=== PATIENT | female | born 1970 | race Caucasian/White ===

== ENCOUNTER 2018-07-04 21:44 | Outpatient (REF) | payer OTHER, SELFPAY ==
[2018-07-04 22:25] LABS: TSH (W/Ref FT4) 3.21 uIU/mL (0.358-3.74)
== END 2018-07-04 22:04 ==
LOC: NCHCN 21:44
PROVIDERS: PCP Nurse Practitioner Family; Visit Provider Nurse Practitioner
DX: E03.9 Hypothyroidism, unspecified (principal); N95.1 Menopausal and female climacteric states
CPT/HCPCS: 84443

== ENCOUNTER 2019-06-12 08:05 | Outpatient (REF) | payer OTHER, SELFPAY ==
[2019-06-12 13:34] LABS: TSH (W/Ref FT4) 3.59 uIU/mL (0.36-3.74)
== END 2019-06-12 08:25 ==
LOC: NCHCN 08:05
PROVIDERS: PCP Nurse Practitioner Family; Visit Provider Nurse Practitioner Family
DX: E03.9 Hypothyroidism, unspecified (principal)
CPT/HCPCS: 84443

== ENCOUNTER 2020-04-24 03:30 | Outpatient (CLI) | payer OTHER, SELFPAY ==
[2020-04-24 13:11] LABS: TSH (W/Ref FT4) 2.59 uIU/mL (0.36-3.74)
== END 2020-04-24 03:50 ==
PROVIDERS: PCP Nurse Practitioner Family; Visit Provider Nurse Practitioner Family
DX: E03.9 Hypothyroidism, unspecified (principal)
CPT/HCPCS: 36415; 84443

== ENCOUNTER 2020-12-21 16:49 | Outpatient (REF) | payer BC, SELFPAY ==
[2020-12-23 11:30] LABS: Hepatitis C Ab w Rflx HCV PCR Negative (Negative)
[2020-12-23 11:44] LABS: HIV-1/2 Ag & Ab Screen Negative (Negative)
== END 2020-12-21 16:50 | disposition home or self-care (01) ==
LOC: NCHCN 16:49
PROVIDERS: PCP Nurse Practitioner Family; Visit Provider Nurse Practitioner Family
DX: R21 Rash and other nonspecific skin eruption (principal); Z86.010 Personal history of colon polyps; Z80.3 Family history of malignant neoplasm of breast; N95.1 Menopausal and female climacteric states; E03.9 Hypothyroidism, unspecified; E66.9 Obesity, unspecified; N80.9 Endometriosis, unspecified; Z00.00 Encounter for general adult medical examination without abnormal findings
CPT/HCPCS: 86803; 87389

== ENCOUNTER 2021-08-09 15:54 | Outpatient (REF) | payer BC, SELFPAY ==
--- NOTE | 2021-08-09 13:30 | PAPFT_PTH ---
PATIENT: Acacia Cavazos LOC: [facility] U#:[id number] AGE/SX: 50/F ROOM: RE08/09/[address]: CHARLA Richard : 1970 BED: DIS: 08/09/2021 SPEC #: [id number] RECD: 08/09/21 17:58 STATUS: KAYCE REQ #: [id number] SHANAE: 08/09/21 13:[address]: Kelsi Gomez DEPT: [facility] Cytology RECD BY: Melinda Means ENTERED: 08/09/21 17:58 SP TYPE: PAPFT OTHR DR: Nancy Enriquez Tissues: 1 - CX/ENDOCX FOR PAP SMEARS Procedures: PAP THIN PREP/UVM Screening HPV DNA PROBE Comments: [id number]
== END 2021-08-09 15:55 | disposition home or self-care (01) ==
LOC: LBN 15:54
PROVIDERS: PCP Nurse Practitioner Family; Visit Provider Nurse Practitioner Family
DX: Z12.4 Encounter for screening for malignant neoplasm of cervix (principal); Z11.51 Encounter for screening for human papillomavirus (HPV)
CPT/HCPCS: 88142; 87624

== ENCOUNTER 2021-12-31 09:03 | Outpatient (CLI) | payer BC, SELFPAY ==
--- NOTE | 2021-12-31 08:00 | DI.RAD_ITS ---
Exam(s) XR KNEE LT 3V AP,LAT,LEAH EXAM: XR KNEE LT 3V AP,LAT,LEAH CLINICAL HISTORY: pain TECHNIQUE: COMPARISON: No exams were available for comparison FINDINGS: Three views were obtained. There may be slight narrowing of medial tibiofemoral cartilaginous joint space. There is narrowing of the cartilaginous joint space of the lateral aspect of the patellofemor al joint with mild lateral patellar subluxation. There are mild marginal osteophytes involving the p atellofemoral joint. No other significant bony abnormality seen. IMPRESSION: Degenerative changes as described above, predominantly involving patellofemoral joint laterally RADIATION DOSE DELIVERED: Total DLP
== END 2021-12-31 09:04 | disposition home or self-care (01) ==
LOC: DIORS 09:04
PROVIDERS: PCP Nurse Practitioner Family; Visit Provider Physician Assistant Surgical
DX: M25.562 Pain in left knee; M22.42 Chondromalacia patellae, left knee; M25.862 Other specified joint disorders, left knee
CPT/HCPCS: 73562

== ENCOUNTER 2022-06-08 07:59 | Emergency (ER) | payer BC, SELFPAY ==
[2022-06-08 08:02] VITALS: BP 108/65; PULSE 67; RESP 16; TEMP 36.3; O2SAT 96
--- NOTE | 2022-06-08 08:09 | W.ED.GENAD ---
Discharge Plan Disposition Patient Disposition: HOME Condition: Improving Discharge Details Clinical Impression: Abdominal pain Primary Care Provider: Nancy Enriquez ED Provider: Seymour Mckeon Home Meds and New Rx's Prescriptions: Continued levothyroxine 25 mcg capsule 25 mcg PO DAILY multivitamin,tx-minerals Tablet 1 tab PO DAILY probiotic 1 cap PO DAILY estradiol 0.5 mg tablet 0.5 mg PO DAILY Qty: 90 4RF Rx Instructions: off 5 days; repeat cycle medroxyprogesterone [Provera] 5 mg tablet 5 mg PO DAILY Qty: 90 4RF Discharge Instructions Instructions: Abdominal Pain (ED) Additional Instructions: Laboratory values were unremarkable here in the ER today. We discussed obtaining ultrasound now given you are asymptomatic and feeling well, you would like to pursue this with your outpatient [facility] team. Please watch for new or worsening symptoms and return to the ER for any concerns. Medical Decision Making This is a 51-year-old female, past medical history that includes endometriosis, hypothyroidism, perimenopausal and currently on hormone replacement presenting to the ER today reporting abdominal pain intermittent over the past 5-6 days, mild nausea, but this morning pain was more severe which prompted her ER visit, by the time she presented she reports that her pain is now back down to a 3 out of 10. Denies fever, vomiting, back pain, dysuria, hematuria, vaginal bleeding or discharge, diarrhea or constipation. Patient reports that she is perimenopausal and has somewhat irregular cycle, last bleeding was mild and roughly 2 weeks ago. CBC, CMP, urinalysis, urine all unremarkable. Patient received 30 IV Toradol and upon reevaluation she reports that she is now asymptomatic. Discussed both with patient and family that emergent CT imaging is likely not indicated but we could pursue ultrasound imaging for further evaluation of potential ovarian cyst, endometriosis, etc. Examination is not consistent with ovarian torsion. Patient is appreciative of this but would prefer to follow-up as an outpatient with her [facility] team does not feel as though this is necessary today. Standard discharge and return precautions were provided. Patient understands, is agreeable to this plan, and has no additional questions or concerns upon discharge. This documentation was generated using [employer] system, please disregard any oddities of phrase or misspellings. Medical Records Medical records reviewed: Yes I reviewed the patient's medical records. Lab Data Lab results reviewed: Yes I reviewed the patient's lab results. Labs: Laboratory Tests Range/Units 06/08/22 06/08/22 06/08/22 08:12 08:20 08:20 WBC (4.4-10.8) 10^3/uL 4.60 RBC (3.93-5.22) 10^6/uL 4.50 Hgb (11.2-15.7) g/dL 13.2 Hct (36.0-46.0) % 39.9 MCV (80-95) fL 89 MCH (27.0-33.0) pg 29.3 MCHC (32.0-36.0) % 33.1 RDW (11.7-14.6) % 13.5 Plt Count (130-400) 10^3/uL 228 MPV (8.0-11.0) fL 10.2 Immature Gran % 0.2 Neutrophils % 61.6 Lymphocytes % 27.6 Monocytes % 6.7 Eosinophils % 3.5 Basophils % 0.4 Nucleated RBC % (0.0-0.3) % 0.0 Absolute Neutrophils (1.2-6.7) 10^3/uL 2.83 Absolute Lymphocytes (1.2-3.4) 10^3/uL 1.27 Absolute Monocytes (0.1-0.8) 10^3/uL 0.31 Absolute Eosinophils (0.0-0.7) 10^3/uL 0.16 Absolute Basophils (0.0-0.2) 10^3/uL 0.02 Sodium (136-145) mmol/L 139 Potassium (3.5-5.1) mmol/L 3.5 Chloride (98-107) mmol/L 103 Carbon Dioxide (21.0-32.0) mmol/L 28.5 Anion Gap (3-11) mmol/L 7.5 BUN (7-18) mg/dL 19 H Creatinine (0.55-1.02) mg/dL 0.8 Estimated GFR/1.73 m2 (mL/min/1.73m2) >= 60.00 Glucose (74-106) mg/dL 136 H Calcium (8.5-10.1) mg/dL 8.7 Total Bilirubin (0.2-1.0) mg/dL 0.4 AST (15-37) U/L 21 ALT (14-59) U/L 41 Alkaline Phosphatase (46-116) U/L 55 Total Protein (6.4-8.2) g/dL 7.3 Albumin (3.4-5.0) g/dL 3.9 Lipase (73-393) U/L 73 Urine Color (Yellow) Yellow Urine Clarity (Clear) Clear Urine pH (5-8) 5.5 Ur Specific [place] (1.005-1.025) >= 1.030 H Urine Protein (Negative) mg/dL Negative Urine Ketones (Negative) mg/dL Negative Urine Blood (Negative) Negative Urine Nitrite (Negative) Negative Urine Bilirubin (Negative) Negative Urine Urobilinogen (Up TO 0.2) EU/dL 0.2 Ur Leukocyte Esterase (Negative) Negative Urine Glucose (Negative) mg/dL Negative HPI General Mode of arrival: ambulatory. Date/Time Provider Initiated Documentation: 06/08/22 08:08. Limitations to Documentation: no limitations. Information obtained by: patient and family. History of Present Illness 51 year old F presents to the emergency department with the chief complaint of abd pain, described as mild, with intensity rated at 3. Quality is described as aching and sharp, and is localized to the abdomen. Patient reports no radiation. Patient started experiencing this day(s) (5) and it has been intermittent. No relieving factors improve symptom(s), No exacerbating factors reported . Patient notes nausea/vomiting (nausea, no vomiting). Patient did receive the following treatments prior to arrival, none Related Data Home Medications Medication Instructions Recorded Confirmed levothyroxine 25 mcg capsule 25 mcg PO DAILY 08/09/21 06/08/22 multivitamin,tx-minerals 1 tab PO DAILY 09/03/21 06/08/22 probiotic 1 cap PO DAILY 09/03/21 06/08/22 estradiol 0.5 mg tablet 0.5 mg PO DAILY #90 tabs 03/08/22 06/08/22 medroxyprogesterone 5 mg tablet 5 mg PO DAILY #90 tabs 03/08/22 06/08/22 (Provera) Previous Rx's Medication Instructions Recorded estradiol 0.5 mg tablet 0.5 mg PO DAILY #90 tabs 03/08/22 medroxyprogesterone 5 mg tablet 5 mg PO DAILY #90 tabs 03/08/22 (Provera) Allergies Allergy/AdvReac Type Severity Reaction Status Date / Time No Known Allergies Allergy Verified 06/08/22 08:09 General Stated Complaint: Abd Prob YVONNE: 3 Review of Systems Constitutional Constitutional: Denies fever(s) Cardiovascular Cardiovascular: Denies chest pain and Denies dyspnea Respiratory Respiratory: Denies dyspnea Gastrointestinal Gastrointestinal: Reports abdominal pain, Denies constipation, Denies diarrhea, Reports loose stools (baseline), Reports nausea and Denies vomiting Genitourinary Genitourinary: Denies abnormal vaginal bleeding, Denies hematuria, Denies dysuria and Denies vaginal discharge Musculoskeletal Musculoskeletal: Denies back pain Integumentary/Breasts Skin/Breast: Denies rash PFSH All Active Problems (Updated 06/08/22 @ 09:19 by CLARKE Whitlock) Abdominal pain (Acute) Patellofemoral arthritis of left knee (Acute) Hormone replacement therapy (Acute) 05/2021. 0.3/2.5 HRT for VMS. Perimenopausal vasomotor symptoms (Acute) Onset 04/2021. Rx HRT 05/2021. Abnormal uterine bleeding (AUB) (Acute) 06/2021. One month after initiation of HRT. u/s. Began cyclic HRT with 7d withdrawal bleed. Abnormal auditory perception of both ears (Acute) Medical History History of colonic polyps Colonoscopy due 2030 Hx of infertility Subclinical hypothyroidism Take Levoxyl. Family History Father Thyroid disorder Paternal Grandmother Breast cancer Sister Cervical cancer Non-Hodgkins lymphoma Social History Smoking/Tobacco Use Status: Never Smoking risk assessment performed?: Yes Drug use: Never Substance use type: does not use Household members: spouse, children and other Details: H-Jose. 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 Sexually active: Yes Current gender identity: female Do you feel safe at home: Yes Female Reproductive History Menstrual Duration of menses: 8-10 days (Variable with perimenopause) control method: permanent sterilization (H- vasectomy) History History 2 Para Hx # Term Pregnancies 0 Multiple births Hx # Pregnancies Ectopic pregnancies AB induced Hx Number of Living Children 0 AB spontaneous 2 Exam Const General: cooperative, healthy appearing, comfortable and no acute distress Orientation: alert and awake HENMT Head: normal to inspection, normocephalic and atraumatic Face and sinus: normal facial exam Mouth: moist mucous membranes Eyes Conjunctivae: conjunctivae normal Neck Neck: normal visual inspection, full ROM, trachea midline and supple Resp Effort & Inspection: normal respiratory effort and able to speak in complete sentences Auscultation: clear to auscultation bilaterally Cardio Rate: regular rate Rhythm: regular rhythm GI Inspection: normal to inspection Palpation: soft, not firm, no guarding, no pulsatile masses and tender suprapubicly (minimal); Rueda's sign negative and with no rebound tenderness Auscultation: normal bowel sounds Back/Spine/Pelvis Back: no CVA tenderness and No back tenderness Skin General skin exam: no rashes or lesions noted Neuro General: patient alert, patient awake, moves all extremities and no focal motor deficits Cognition: normal cognition Speech: speech normal Gait: normal gait Sensory Exam: no sensory deficits noted Psych Appearance: grossly normal Mental Status: mental status grossly normal Course Vital Signs Vital signs: Vital Signs Temperature 36.3 C L 06/08/22 08:02 Pulse 67 06/08/22 08:02 Respiratory Rate 16 06/08/22 08:02 Blood Pressure 108/65 06/08/22 08:02 Pulse Oximetry 96 06/08/22 08:02 Temperature 36.3 C L 06/08/22 08:02 Temperature Source Temporal Artery Scan 06/08/22 08:02 Pulse 67 06/08/22 08:02 Respiratory Rate 16 06/08/22 08:02 Respiratory Effort 06/08/22 08:07 Blood Pressure 108/65 06/08/22 08:02 Blood Pressure Position Sitting 06/08/22 08:02 Pulse Oximetry 96 06/08/22 08:02 Oxygen Delivery Method Room Air 06/08/22 08:02 Oxygen Flow Rate 0 06/08/22 08:02 Pain Level 10 06/08/22 08:02
[2022-06-08 08:25] LABS: Bilirubin Negative (Negative); Blood Negative (Negative); Clarity Clear (Clear); Glucose Negative (Negative); Ketones Negative (Negative); Leukocyte Esterase Negative (Negative); Nitrite Negative (Negative); Specific Gravity >= 1.030 (1.005-1.025); Urobilinogen 0.2 EU/dL (Up TO 0.2); pH 5.5 (5-8)
[2022-06-08 08:26] LABS: Abs Immature Grans 0.01 10^3/uL (0.0-0.06); Absolute Basophil Count 0.02 10^3/uL (0.0-0.2); Absolute Eosinophil Count 0.16 10^3/uL (0.0-0.7); Absolute Lymphocyte Count 1.27 10^3/uL (1.2-3.4); Absolute Monocyte Count 0.31 10^3/uL (0.1-0.8); Absolute Neutrophil Count 2.83 10^3/uL (1.2-6.7); Basophils % 0.4; Eosinophils % 3.5; HCT 39.9 % (36.0-46.0); HGB 13.2 g/dL (11.2-15.7); Immature Grans % 0.2; Lymphocytes % 27.6; MCH 29.3 pg (27.0-33.0); MCHC 33.1 % (32.0-36.0); MCV 89 fL (80-95); MPV 10.2 fL (8.0-11.0); Monocytes % 6.7; Neutrophils % 61.6; Platelet Count 228 10^3/uL (130-400); RDW 13.5 % (11.7-14.6); RDW-SD 43.9 fL
[2022-06-08 08:40] LABS: ALT 41 U/L (14-59); AST 21 U/L (15-37); Albumin 3.9 g/dL (3.4-5.0); Alkaline Phosphatase 55 U/L (46-116); Anion Gap 7.5 mmol/L (3-11); BUN 19 mg/dL (7-18); Bilirubin, Total 0.4 mg/dL (0.2-1.0); CO2 28.5 mmol/L (21.0-32.0); CREATININE 0.8 mg/dL (0.55-1.02); Calcium 8.7 mg/dL (8.5-10.1); Chloride 103 mmol/L (98-107); Glucose 136 mg/dL (74-106); Lipase 73 U/L (73-393); Potassium 3.5 mmol/L (3.5-5.1); Sodium 139 mmol/L (136-145); Total Protein 7.3 g/dL (6.4-8.2)
[2022-06-08] MEDS: Ketorolac 30 MG/ML VIAL IVP (08:49)
== END 2022-06-08 09:30 | disposition home or self-care (01) ==
PROVIDERS: Emergency Provider Physician Assistant; PCP Nurse Practitioner Family
DX: R10.9 Unspecified abdominal pain (principal)
CPT/HCPCS: 36415; 80053; 81025; 83690; 96374; 99284; 81003; 85025; J1885

== ENCOUNTER 2022-06-09 08:57 | Outpatient (CLI) | payer BC, SELFPAY ==
--- NOTE | 2022-06-09 08:15 | DI.RAD_ITS ---
Exam(s) XR KNEE RT 4V AP,LAT,LEAH,PAT EXAM: XR KNEE RT 4V AP,LAT,LEAH,PAT CLINICAL HISTORY: pain in knee TECHNIQUE: COMPARISON: CR XR KNEE LT 3V AP,LAT,LEAH from 12/31/2021 FINDINGS: Four views were obtained. There may be slight narrowing of the cartilaginous joint space of the medi al tibiofemoral joint. Otherwise joint spaces appear well maintained. No significant knee joint eff usion seen. There appears to be slight lateral patellar subluxation. There are mild marginal osteophytes of all 3 joints of the knee. IMPRESSION: Mild DJD as described above. RADIATION DOSE DELIVERED: Total DLP
== END 2022-06-09 08:58 | disposition home or self-care (01) ==
LOC: DIORS 08:58
PROVIDERS: PCP Nurse Practitioner Family; Referring Provider Nurse Practitioner Family; Visit Provider Physician Assistant Surgical
DX: M25.561 Pain in right knee (principal); S83.011A Lateral subluxation of right patella, initial encounter; M17.11 Unilateral primary osteoarthritis, right knee
CPT/HCPCS: 73564

== ENCOUNTER 2024-06-26 13:54 | Outpatient (REF) | payer BC, SELFPAY ==
--- NOTE | 2024-06-26 13:00 | PAPFT_PTH ---
PATIENT: Acacia Cavazos LOC: [facility] U#:[id number] AGE/SX: 53/F ROOM: RE06/26/[address]: Rosa Alvarado : 1970 BED: DIS: 06/26/2024 SPEC #: [id number] RECD: 06/26/24 17:56 STATUS: KAYCE REVikki #: [id number] SHANAE: 06/26/24 13:[address]: Rosa Alvarado DEPT: [facility] Cytology RECD BY: Melinda Means ENTERED: 06/26/24 17:57 SP TYPE: PAPFT OTHR DR: Nancy Enriquez Tissues: 1 - CX/ENDOCX FOR PAP SMEARS Procedures: PAP THIN PREP/UVM Screening HPV DNA PROBE Comments: [id number] (HPV 16 & 18/45)
== END 2024-06-26 13:55 | disposition home or self-care (01) ==
LOC: LBN 13:54
PROVIDERS: PCP Nurse Practitioner Family; Visit Provider Obstetrics & Gynecology Gynecology
DX: N94.10 Unspecified dyspareunia (principal); Z79.890 Hormone replacement therapy; N95.1 Menopausal and female climacteric states
CPT/HCPCS: 88142; 87624